=== PATIENT | male | born 1990 | race Caucasian/White ===

== ENCOUNTER → 2016-10-01 07:26 | Outpatient (CLI) | payer MEDICAID | END | disposition home or self-care (01) | LOC: D.MRI 07:26 | DX: M54.16 Radiculopathy, lumbar region (principal) ==

== ENCOUNTER 2018-02-03 17:15 | Emergency (ER) | payer OTHER ==
[~2018-02-03] VITALS: Ht 182.9 cm; Wt 90.9 kg
[2018-02-03 17:17] VITALS: Ht 182.9 cm; Wt 90.9 kg
[2018-02-03] MEDS ORDERED: CYCLOBENZAPRINE10 MG PO (17:30)
[2018-02-03 20:06] VITALS: BP 151/69
== END 2018-02-03 20:06 | disposition home or self-care (01) ==
LOC: D.ER 17:15
DX: S16.1XXA Strain of muscle, fascia and tendon at neck level, initial encounter (principal); V43.52XA Car driver injured in collision with other type car in traffic accident, initial encounter; Y93.89 Activity, other specified; Y92.410 Unspecified street and highway as the place of occurrence of the external cause; F17.200 Nicotine dependence, unspecified, uncomplicated